=== PATIENT | male | born 2005 | race Two or more races ===

== ENCOUNTER → 2024-07-12 13:13 | Outpatient (REF) | payer OTHER, SELFPAY | LOC: HWRAD 13:13 | PROVIDERS: ATTENDING PHYSICIAN Family Medicine | DX: R06.00 Dyspnea, unspecified (principal) | CPT/HCPCS: 71046 ==

== ENCOUNTER 2025-03-15 20:12 | Emergency (ER) | payer OTHER, SELFPAY ==
[2025-03-15 20:19] VITALS: BP 146/88
--- NOTE | 2025-03-15 23:59 | ED.GENMED ---
History of Present Illness
General
Chief Complaint: Chest Pain
Source: patient
Exam Limitations: none
Time Seen by Provider: 03/15/25 23:54
History of Present Illness
History of Present Illness:
20yoM with no significant past medical history presenting for evaluation of chest pain. Patient reports a pressure/tightness sensation in his left chest that has been intermittent over the past 3 to 4 weeks. Pain seems to come and go randomly.
Pain occurs at rest but also sometimes occurs with activity. He has no current chest pain during initial exam. He also states he feels like he is unable to get a deep enough breath. Patient's family members are worried about him blood clot. He
was seen in the ED in March 2023 for chest pain. He had an abnormal EKG at that time and he was evaluated by cardiology. Patient had an echocardiogram in April 2023 which showed normal LV size and function. EF was 65 to 70%.
Past History
Past History
ED Past Medical History: None
ED Past Surgical History: None
Social History
Tobacco: Non-smoker
Alcohol: None
Drug: None
Personal: Single
Living: with family
Employment: Employed
Family History
Family History: Other (Noncontributory)
Phy Exam
General Physical Exam
General Presentation: well appearing and no apparent distress
General Skin: warm and dry
General Habitus: normal
General Mental: alert
ENT Exam
ENT Exam: normocephalic
Cardiovascular Exam
Cardiovascular Exam: regular rate/rhythm, no edema and no murmur
Pulmonary Exam
Pulmonary Exam: lungs clear, no respiratory distress, no rales, no crackles, no rhonchi and no wheezing
Neurological Exam
Neurological Exam: alert
[place] Coma Scale
Eye Opening: Spontaneous
Verbal Response: Oriented
Motor Response: Obeys Commands
GCS Total Score: 15
Skin Exam
Skin Exam: normal color and warm/dry
Psychiatric Exam
Psychiatric Exam: normal mood/affect
Scores
Heart Score for Chest Pain Patients
STEMI patient?: No
History: Slightly or Non-Suspicious
ECG: Significant ST-Depression
Age: </= 45 years
Risk Factors: No Risk Factors
Troponin: </= Normal Limit
Heart Score for Chest Pain Patients: 2
Heart Score Risk: 2.5% MACE over next 6 weeks
Course
Orders/Labs/Results
Orders:
Orders
03/15/25 20:19
Electrocardiogram (*1) Urgent
Reason for Study: Chest Pain
EKG- Treatment ONCE
03/15/25 22:38
Troponin I Urgent
03/15/25 22:39
Complete Blood Count/With Diff Urgent
03/16/25 00:10
CR Chest - 2 Views Urgent
Comment:
Reason For Exam: CP
03/16/25 00:38
D-Dimer Urgent
03/16/25 01:18
Comprehensive Metabolic Panel Urgent
03/16/25 00:23
03/16/25 01:18
Vital Signs
Initial and Last Documented VS:
Initial Vital Signs
Temp Pulse Resp Pulse Ox
97.9 F 72 18 99
03/15/25 20:16 03/15/25 20:16 03/15/25 20:16 03/15/25 20:16
Last Documented Vital Signs
Temp Pulse Resp BP Pulse Ox
97.9 F 53 18 146/86 99
03/15/25 20:16 03/16/25 01:22 03/16/25 01:22 03/16/25 01:22 03/16/25 01:22
MDM/Problems Addressed
Differential Diagnosis Includes:
20yoM here with intermittent chest pain x 3-4 weeks. Denies active pain during initial assessment. He is mildly hypertensive with otherwise stable vital signs. He is well-appearing in no acute distress. Exam reassuring. Differential diagnosis
includes but is not limited to: Musculoskeletal, pericarditis, pleurisy, pneumonia, pneumothorax, less likely ACS given length of symptoms and lack of risk factors
Initial ED plan: EKG obtained in triage which shows marked ST/T wave changes in inferolateral leads. This was also noted on his prior EKG in 2022. Will check cardiac labs, D-dimer, and chest x-ray.
*Pulse Oximetry
SaO2: 99
Patient hypoxic: no
*EKG
Interpreted by ED Provider?: Yes
EKG Intrepretation Date: 03/15/25
Heart Rate: 57
Rate: bradycardiac
Rhythm: sinus
[place]: normal axis
Interval: normal interval
QRS Pattern: left vent hypertrophy
Ischemia: non-specific ST changes
*Critical Care Note
Total Time (30-74mins, 75-104mins- exclusive of procedures): Not Applicable
Update Note
Update Note:
Labs unremarkable. D-dimer normal making PE very unlikely. Troponin undetectable. Chest x-ray clear per my interpretation. No indication for hospitalization. He was advised to follow-up closely with his PCP and ED return precautions were
reviewed. Patient in agreement with plan and was discharged in stable condition.
ED Attending Note
-
Portions of this chart may have been created with voice recognition software.� Occasional wrong word or��sound alike� substitutions may have occurred due to the inherent limitations of voice recognition software.
Discharge Plan
Departure
Patient Disposition: Home (Routine Discharge)
Date of Disposition: 03/16/25
Time of Disposition: 02:00
Patient with high blood pressure during this ER visit?: Yes
Discharge Problem:
Chest pain
Instructions: Chest Pain PCP Follow Up
Prescriptions:
No Action
polyethylene glycol 3350 17 GRAMS powder in packet
17 grams PO DAILY Qty: 14 0RF
fluticasone propionate [Flonase Allergy Relief] 50 mcg/actuation spray,suspension
1 spray intranasal BID Qty: 16 0RF
penicillin V potassium 500 mg tablet
500 mg PO BID 10 Days Qty: 20 0RF
prednisone 10 mg tablet
10 mg PO DIRECTED Qty: 60 0RF
Rx Instructions:
5pills a day for 2days,4pills a day for 3 days, 3pills a day for 3days, pills a day for 3 days, pill a day for3 days
Referrals:
Ryder Carter MD [Family Provider, Family Practice]
Activity Restrictions/Additional Instructions:
Please call on Tuesday to schedule a follow-up appointment with your family doctor. Return to the ER with any new or worsening symptoms.
Interventions
Interventions:
*Risk Screen - Suicide Last Done: 03/15/25 20:19
*General Assessment Last Done: 03/16/25 00:13
*Neglect/Abuse Screening Last Done: 03/15/25 20:19
*ED- Fall Risk Assessment Last Done: 03/16/25 00:13
*ED COVID-19 Vaccine History Last Done: 03/16/25 00:13
*Nursing Disposition Last Done: 03/16/25 02:07
ED- Cardiac Assessment Last Done: 03/16/25 00:13
Discharge Date and Time
Discharge Date/Time: 03/16/25 02:07
Print Language: MACEDONIAN
[2025-03-16 00:13] VITALS: BMI 33.2
[2025-03-16 00:24] VITALS: BP 152/87
[2025-03-16 00:32] LABS: Hematocrit 43.0 % (39.0-52.0); Hemoglobin 15.3 g/dL (13.0-18.0); Mean Corp Hgb Conc. 35.6 g/dL (33.0-37.0); Mean Corpuscular Volume 80.8 fL (80.0-94.0); Nucleated Red Blood Cells % 0 % (-); Platelet Count 288 10^3/uL (130-400); Red Cell Dist. Width 11.7 % (11.5-14.5)
[2025-03-16 01:05] LABS: Troponin I < 0.012 ng/ml
[2025-03-16 01:22] VITALS: BP 146/86
[2025-03-16 01:23] LABS: D-Dimer < 0.27 ug/mlFEU (0.00-0.50)
[2025-03-16 01:49] LABS: ALT (SGPT) 41 U/L (0-50); AST (SGOT) 39 U/L (17-59); Albumin 4.8 g/dl (3.5-5.0); Alkaline Phosphatase 41 U/L (38-126); Blood Urea Nitrogen 9 mg/dl (9-20); Calcium 9.9 mg/dl (8.4-10.2); Carbon Dioxide 25 mmol/L (22-30); Chloride 105 mmol/L (98-107); Estimated Creatinine Clearance > 125 ml/min; Glucose 94 mg/dl (70-99); Potassium 3.8 mmol/L (3.5-5.1); Sodium 141 mmol/L (135-145); Total Protein 7.9 g/dl (6.3-8.2); eGFR > 60.00
== END 2025-03-16 02:07 | disposition home or self-care (01) ==
LOC: EMR 20:12
PROVIDERS: Physician Assistant; EMERGENCY PHYSICIAN Emergency Medicine; FAMILY PHYSICIAN Family Medicine
DX: R07.89 Other chest pain (principal); F32.A Depression, unspecified
CPT/HCPCS: 99283; 71046; 80053; 84484; 85025; 85379; 93005